=== PATIENT | female | born 2000 | race Caucasian/White ===

== ENCOUNTER 2023-09-25 11:39 | Outpatient (AMB) | payer OTHER, SELFPAY ==
--- NOTE | 2023-09-25 11:40 | MHC.OFFWIV ---
Intake Vital Signs 09/25/23 11:52 Height 5 ft 4 in Weight 132 lb 8 oz BMI 22.7 BP 110/70 Blood Pressure Location Lt brachial Position Sitting Pulse 72 Pulse Source Pulse Oximeter Pulse Oximetry (%) 98 Oxygen Delivery Method Room Air Intake Visit Reasons: EP UTI Intake Note: pt is here for possible uti Patient Tobacco Use Status: Never used Tobacco Allergies No Known Allergies Allergy (Verified 09/25/23 11:55) Medication List - Last Reconciled 09/25/23 by Gloria Ybarra MD No Known Home Meds Do you need a note to return to daycare/school/sports/work: Yes HPI EP UTI HPI Details Patient is 23-year-old female came in today to be evaluated for possible bladder infection Symptoms started yesterday with frequency, burning sensation with micturition She has no fever no chills no back pain no nausea no vomiting no abdominal pain On examination there is no suprapubic discomfort or CVAT UA is positive for 3+ leuk esterase without any blood Culture sent I am treating patient with nitrofurantoin 100 mg b.i.d. for 7 days Patient was instructed to push fluids PFSH Social History Patient Tobacco Use Status: Never used Tobacco Review of Systems Const All systems reviewed & are unremarkable except as noted in HPI and below Physical Exam Vital Signs: Last Vital Signs Pulse 72 09/25/23 11:52 BP 110/70 09/25/23 11:52 Pulse Ox 98 09/25/23 11:52 Oxygen Delivery Method Room Air 09/25/23 11:52 BMI result Body Mass Index 22.7 Const General: no acute distress Orientation/consciousness: patient oriented x3 Eyes General: appearance normal, both eyes and all related structures Resp Effort & Inspection: normal respiratory effort and able to speak in complete sentences General: Yes no CVA tenderness Back/Spine/Pelvis Back: no CVA tenderness Neuro General: patient oriented x3 Psych Mental Status: mental status grossly normal Results AMB Urinalysis, Automated UA Leukoctes 500 Demarco/uL Last Edit by Reagan Coley CMA on 09/25/23 11:57 UA Nitrite Positive Last Edit by Reagan Coley CMA on 09/25/23 11:57 UA Urobilinogen 4 mg/dL Last Edit by Reagan Coley CMA on 09/25/23 11:57 UA Protein 0 mg/dL Last Edit by Reagan Coley CMA on 09/25/23 11:57 UA pH 5.5 Last Edit by Reagan Coley CMA on 09/25/23 11:57 UA Blood 0 Huy/uL Last Edit by Reagan Coley CMA on 09/25/23 11:57 UA Specific [place] 1.025 Last Edit by Reagan Coley CMA on 09/25/23 11:57 UA Ketone Positive Last Edit by Reagan Coley CMA on 09/25/23 11:57 UA Bilirubin 4 mg/dL Last Edit by Reagan Coley CMA on 09/25/23 11:57 UA Glucose 100 mg/dL Last Edit by Reagan Coley CMA on 09/25/23 11:57 Results Reviewed Results Reviewed: Laboratory Last Values Urine pH (Auto) 5.5 09/25/23 11:56 Specific [place] (Auto) 1.025 09/25/23 11:56 Urine Protein (Auto) 0 mg/dL 09/25/23 11:56 Glucose (UA)(Auto) 100 mg/dL 09/25/23 11:56 Urine Ketones (Auto) Positive 09/25/23 11:56 Urine Blood (Auto) 0 Huy/uL 09/25/23 11:56 Urine Nitrite (Auto) Positive 09/25/23 11:56 Urine Bilirubin (Auto) 4 mg/dL 09/25/23 11:56 Urine Urobilinogen (Auto) 4 mg/dL 09/25/23 11:56 Leukocyte Esterase (Auto) 500 Demarco/uL 09/25/23 11:56 Assessment & Plan Assessment & Plan (1) Acute cystitis without hematuria: Code(s): N30.00 - Acute cystitis without hematuria Plan Patient is 23-year-old female came in today to be evaluated for possible bladder infection Symptoms started yesterday with frequency, burning sensation with micturition She has no fever no chills no back pain no nausea no vomiting no abdominal pain On examination there is no suprapubic discomfort or CVAT UA is positive for 3+ leuk esterase without any blood Culture sent I am treating patient with nitrofurantoin 100 mg b.i.d. for 7 days Patient was instructed to push fluids Orders: Orders Urine Culture Today N30.00 - Acute cystitis without hematuria AMB Urinalysis Automated Today Z13.9 - Encounter for screening, unspecified Medications: New nitrofurantoin monohyd/m-cryst 100 mg (Macrobid) must administer with a meal/food 100 mg PO Q12H 7 days 14 caps 0RF Coding Level of Care Code Est Pt Level 3 (87821) Diagnoses Acute cystitis without hematuria N30.00
[2023-09-25 11:52] VITALS: BP 110/70; PULSE 72; O2SAT 98; BMI 22.7
== END 2023-09-25 12:28 | disposition home or self-care (01) ==
PROVIDERS: Visit Provider Internal Medicine
DX: N30.00 Acute cystitis without hematuria (principal)
CPT/HCPCS: 81003; 99213

== ENCOUNTER 2023-09-25 16:41 | Outpatient (REF) | payer OTHER, SELFPAY | END 2023-09-25 16:42 | disposition home or self-care (01) | LOC: HO.LNP 16:41 | PROVIDERS: Visit Provider Internal Medicine | DX: N30.00 Acute cystitis without hematuria (principal); R82.998 Other abnormal findings in urine | CPT/HCPCS: 87086; 87088; 87186 ==

== ENCOUNTER 2023-11-18 15:28 | Outpatient (AMB) | payer OTHER, SELFPAY ==
[2023-11-18 15:51] VITALS: BP 100/62; PULSE 94; TEMP 36.7; O2SAT 98; BMI 22.3
--- NOTE | 2023-11-18 15:51 | MHC.OFFWIV ---
Intake Vital Signs 11/18/23 15:51 Height 5 ft 4 in Weight 130 lb BMI 22.3 BP 100/62 Blood Pressure Location Rt brachial Position Sitting Pulse 94 Pulse Source Pulse Oximeter Temp 98.1 F Temp Source Oral Pulse Oximetry (%) 98 Oxygen Delivery Method Room Air Intake Visit Reasons: EP- possible UTI- burning, cloudy Intake Note: pt c/o burning while urinating and cloudy urine. Started x1wk ago Patient Tobacco Use Status: Never used Tobacco Allergies No Known Allergies Allergy (Verified 11/18/23 16:07) Do you need a note to return to daycare/school/sports/work: No HPI EP- possible UTI- burning, cloudy HPI Details This note is constructed using voice recognition software. While every effort has been made to ensure accuracy, esthetician/skin therapist errors may have been included. The patient is a 23 year old female who presents to the clinic today with cloudy urine with burning on urination. She notes that she had a UTI a couple of months ago and is unsure if the symptoms completely resolve. She denies vaginal discharge, is not currently sexually active. [facility] Social History Patient Tobacco Use Status: Never used Tobacco Review of Systems Const All systems reviewed & are unremarkable except as noted in HPI and below Physical Exam Vital Signs: Last Vital Signs Temp 98.1 F 11/18/23 15:51 Pulse 94 11/18/23 15:51 BP 100/62 11/18/23 15:51 Pulse Ox 98 11/18/23 15:51 Oxygen Delivery Method Room Air 11/18/23 15:51 BMI result Body Mass Index 22.3 Const General: cooperative, healthy appearing, comfortable, no acute distress and alert Orientation/consciousness: patient oriented x3 Limitations: no limitations Resp Effort & Inspection: normal respiratory effort and able to speak in complete sentences Auscultation: clear to auscultation bilaterally Cardio Jugular venous distension: no JVD Palpation: normal PMI Rate: regular rate Heart sounds: S1 normal heart sound present, S2 normal heart sound present, no click, no gallops, no murmurs and no rubs Skin General skin exam: no rashes or lesions noted, elasticity normal and turgor normal Neuro General: patient oriented x3 Psych Appearance: grossly normal Mental Status: mental status grossly normal Speech and movement: Normal speech and movement present Affect: normal affect Results AMB Urinalysis, Automated UA Leukoctes 15 Demarco/uL Last Edit by Raven Zavala CMA on 11/18/23 16:15 UA Nitrite Negative Last Edit by Raven Zavala CMA on 11/18/23 16:15 UA Urobilinogen 0.2 mg/dL Last Edit by Raven Zavala, MORRIS on 11/18/23 16:15 UA Protein 0 mg/dL Last Edit by Raven Zavala CMA on 11/18/23 16:15 UA pH 8.5 Last Edit by Raven Zavala CMA on 11/18/23 16:15 UA Blood 200 Huy/uL Last Edit by Raven Zavala, MORRIS on 11/18/23 16:15 UA Specific [place] 1.010 Last Edit by Raven Zavala CMA on 11/18/23 16:15 UA Ketone Negative Last Edit by Raven Zavala CMA on 11/18/23 16:15 UA Bilirubin 0 mg/dL Last Edit by Raven Zavala CMA on 11/18/23 16:15 UA Glucose 0 mg/dL Last Edit by Raven Zavala CMA on 11/18/23 16:15 Assessment & Plan Assessment & Plan (1) Acute cystitis without hematuria: Code(s): N30.00 - Acute cystitis without hematuria Plan: Antimicrobial therapy sent to requested pharmacy as in office urine does appear to be consistent with likely UTI. Advised patient to follow up with primary care provider with worsening symptoms or failure to resolve. Advised increased hydration. May try azo for symptomatic management as well. Plan See above for full details and plan. Orders: Orders AMB Urinalysis Automated Today Z13.9 - Encounter for screening, unspecified Medications: New ciprofloxacin HCl 250 mg PO BID 3 days 6 tabs 0RF Coding Level of Care Code Est Pt Level 3 (32555) Diagnoses Acute cystitis without hematuria N30.00
== END 2023-11-18 16:54 | disposition home or self-care (01) ==
PROVIDERS: Visit Provider Registered Nurse
DX: Z13.9 Encounter for screening, unspecified (principal); N30.00 Acute cystitis without hematuria
CPT/HCPCS: 81003; 99213